=== PATIENT | female | born 1960 | race American Indian/Alaskan Native ===

== ENCOUNTER 2017-03-26 13:18 | Outpatient (CLI) | payer BC ==
--- NOTE | 2017-03-27 11:54 | Mammography Report ---
BILATERAL DIGITAL SCREENING MAMMOGRAM with CAD: 03/26/17 13:18:00 CLINICAL: Routine screening. COMPARISON:02/28/16 FINDINGS: The breasts are almost entirely fatty.A stable 1.2 cm left upper outer benign intraparenchymal lymph node with central fat. No mass, architectural distortion or suspicious calcifications. IMPRESSION: No mammographic evidence of malignancy. BI-RADS CATEGORY: 2 -- Benign RECOMMENDATION: Routine mammographic screening in one year. COMMENT: Patient follow-up letters are generated by our [employer] application.
== END 2017-03-26 13:19 | disposition home or self-care (01) ==
LOC: MAMMO 13:18
PROVIDERS: ATTEND Internal Medicine
DX: Z12.31 Encounter for screening mammogram for malignant neoplasm of breast (principal)
CPT/HCPCS: 77067; G0202

== ENCOUNTER 2019-03-18 11:21 | Outpatient (CLI) | payer BC ==
--- NOTE | 2019-03-18 16:04 | Mammography Report ---
DIGITAL SCREENING MAMMOGRAM WITH CAD, 03/18/2019 INDICATION: Routine screening mammography. TECHNIQUE: Digital bilateral 2D mammography was obtained in the craniocaudal and mediolateral obliq ue projections. This examination was interpreted with the benefit of Computer-Aided Detection analysi s. COMPARISON: 03/26/2017 FINDINGS: Breast Density: The breasts are almost entirely fatty. There is no evidence of dominant mass, suspicious calcifications or architectural distortion in eithe r breast. IMPRESSION: No mammographic evidence of malignancy. Follow up recommendation: Routine yearly BI-RADS Category 1: Negative. A "normal" or negative report should not discourage follow up or biopsy of a clinically significant f inding. A written summary of these findings will be mailed to the patient. The patient will be entered into a mammography reporting system which will generate a reminder letter for the patient's next appointmen t at the appropriate interval. The [employer] recommends yearly mammograms starting at age 40 and continuing as l fl[place] as a woman is in good health. Breast MRI is recommended for women with an approximate 20-25% or greater lifetime risk of breast cancer, including women with a strong family history of breast or ova maribell cancer or who have been treated for Hodgkin's disease. Signer Name: Chris Johnson MD Signed: 03/18/2019 4:00 PM Workstation Name: [id number]
== END 2019-03-18 11:22 | disposition home or self-care (01) ==
LOC: MAMMO 11:21
PROVIDERS: ATTEND Internal Medicine
DX: Z12.31 Encounter for screening mammogram for malignant neoplasm of breast (principal)
CPT/HCPCS: 77067

== ENCOUNTER 2019-05-17 12:30 | Outpatient (CLI) | payer BC ==
--- NOTE | 2019-05-17 16:04 | Ultrasound Report ---
LIMITED LEFT BREAST/AXILLARY ULTRASOUND HISTORY: Left axillary lump. COMPARISON: None. FINDINGS: Focused sonographic evaluation upon the axillary location of the left breast demonstrates s kin thickening but no mass or lymphadenopathy. IMPRESSION: Benign axillary skin thickening and no suspicious finding. Recommend clinical follow-up and routine m ammographic screening. BIRADS 2: Benign Signer Name: Chris Johnson MD Signed: 05/17/2019 3:59 PM Workstation Name: [id number]
== END 2019-05-17 12:31 | disposition home or self-care (01) ==
LOC: US 12:30
PROVIDERS: ATTEND Internal Medicine
DX: D36.0 Benign neoplasm of lymph nodes (principal)

== ENCOUNTER 2020-04-05 10:32 | Outpatient (CLI) | payer BC ==
--- NOTE | 2020-04-05 12:12 | Mammography Report ---
DIGITAL SCREENING MAMMOGRAM WITH CAD, 04/05/2020 CLINICAL INFORMATION / INDICATION: Routine screening mammography. TECHNIQUE: Digital bilateral 2D mammography was obtained in the craniocaudal and mediolateral obliqu e projections. This examination was interpreted with the benefit of Computer-Aided Detection analysis . COMPARISON: 03/26/2017, 03/18/2019 FINDINGS: Breast Density: The breasts are almost entirely fatty. No dominant mass, suspicious calcifications, or architectural distortion in either breast. No interval change. IMPRESSION: No mammographic evidence of malignancy. Follow up recommendation: Routine yearly BI-RADS Category 1: Negative. A "normal" or negative report should not discourage follow up or biopsy of a clinically significant f inding. A written summary of these findings will be mailed to the patient. The patient will be entered into a mammography reporting system which will generate a reminder letter for the patient's next appointmen t at the appropriate interval. The [employer] recommends yearly mammograms starting at age 40 and continuing as l fl[place] as a woman is in good health. Breast MRI is recommended for women with an approximate 20-25% or greater lifetime risk of breast cancer, including women with a strong family history of breast or ova maribell cancer or who have been treated for Hodgkin's disease. Signer Name: Elif Moya MD Signed: 04/05/2020 12:07 PM Workstation Name: [id number]
== END 2020-04-05 10:33 | disposition home or self-care (01) ==
LOC: MAMMO 10:32
PROVIDERS: ATTEND Internal Medicine
DX: Z12.31 Encounter for screening mammogram for malignant neoplasm of breast (principal)
CPT/HCPCS: 77067

== ENCOUNTER 2021-04-09 10:33 | Outpatient (CLI) | payer BC ==
--- NOTE | 2021-04-09 13:06 | Mammography Report ---
DIGITAL SCREENING MAMMOGRAM WITH CAD, 04/09/2021 CLINICAL INFORMATION / INDICATION: Routine screening mammography. SCREENING MAMMOGRAM TECHNIQUE: Digital bilateral 2D mammography was obtained in the craniocaudal and mediolateral obliqu e projections. This examination was interpreted with the benefit of Computer-Aided Detection analysis . COMPARISON: 04/03/2010 through 04/05/2020. FINDINGS: Breast Density: The breasts are almost entirely fatty. No dominant mass, suspicious calcifications, or architectural distortion in either breast. A small benign intramammary lymph node in the left upper outer quadrant is stable. IMPRESSION: No mammographic evidence of malignancy. Follow up recommendation: Routine yearly BI-RADS Category 2: BENIGN. A "normal" or negative report should not discourage follow up or biopsy of a clinically significant f inding. A written summary of these findings will be mailed to the patient. The patient will be entered into a mammography reporting system which will generate a reminder letter for the patient's next appointmen t at the appropriate interval. The [employer] recommends yearly mammograms starting at age 40 and continuing as l fl[place] as a woman is in good health. Breast MRI is recommended for women with an approximate 20-25% or greater lifetime risk of breast cancer, including women with a strong family history of breast or ova maribell cancer or who have been treated for Hodgkin's disease. Signer Name: Keith Marquez MD Signed: 04/09/2021 1:02 PM Workstation Name: [id number]
--- NOTE | 2021-04-09 13:12 | XRay Report ---
Thoracic spine-3 views INDICATION: PAIN IN THORACIC SPINE. COMPARISON: None. IMPRESSION: Mild lower thoracic kyphosis with otherwise normal alignment. Moderate multilevel disco genic DJD. No acute osseous or soft tissue abnormality. Signer Name: Chris Rivas MD Signed: 04/09/2021 1:08 PM Workstation Name: [id number]
== END 2021-04-09 10:34 | disposition home or self-care (01) ==
LOC: MAMMO 10:33
PROVIDERS: ATTEND Internal Medicine
DX: Z12.31 Encounter for screening mammogram for malignant neoplasm of breast (principal); M47.814 Spondylosis without myelopathy or radiculopathy, thoracic region; R59.0 Localized enlarged lymph nodes
CPT/HCPCS: 72070; 77067